=== PATIENT | male | born 1980 | race Caucasian/White ===

== ENCOUNTER 2017-11-06 19:04 | Emergency (ER) | payer BC ==
[2017-11-06] MEDS ORDERED: Sodium Chloride 0.9% 10 ML Syringe FLUSH PRN (19:20)
[2017-11-06] MEDS ORDERED: Sodium Chloride 0.9% 1,000 ML IV ONE (19:20)
[2017-11-06 20:14] LABS: CHLORIDE,CL 107 mmol/L (98-107); SODIUM,NA 142 mmol/L (136-145)
[2017-11-06 20:18] LABS: ANION GAP 11.5 mmol/L (10-20)
--- NOTE | 2017-11-06 21:25 | EDM.PDOC ---
ED HPI GENERAL MEDICAL PROBLEM - General Chief Complaint: Neuro Symptoms/Deficits Stated Complaint: possible stroke Time Seen by Provider: 11/06/17 19:16 Source of Information: Reports: Patient History Limitations: Reports: No Limitations - History of Present Illness INITIAL COMMENTS - FREE TEXT/NARRATIVE: Patient describes numbness and tingling that started this evening at around 1830. This started in his right hand and crept up the arm into the shoulder, neck, and right side of the face. He is also complaining of pain to the right side of his neck. He did not have any weakness on one side, no speech difficulty, no facial droop. He denies chest pain, pressure, headache, incontinence, falls, or decreased level of consciousness. History of aortic valve replacement and anticoagulation with warfarin. Symptoms did resolve within one hour of presentation to the emergency room. Onset: Today, Sudden Duration: Improving Location: Reports: Face, Upper Extremity, Right Quality: Reports: Other (numbness/tingling) Severity: Mild Associated Symptoms: Reports: No Other Symptoms - Related Data Allergies Allergy/AdvReac Type Severity Reaction Status Date / Time No Known Allergies Allergy Verified 01/17/16 11:56 Home Meds: Home Meds Ranitidine [Zantac] 150 mg PO DAILY 11/06/17 [History] Warfarin [Coumadin] 5 mg PO DAILY 11/06/17 [History] Past Medical History - Past Health History Medical/Surgical History: Denies Medical/Surgical History - Past Surgical History Cardiovascular Surgical History: Reports: Valve Replacement Social & Family History - Family History Family Medical History: Noncontributory ED ROS GENERAL - Review of Systems Review Of Systems: See Below Constitutional: Reports: No Symptoms HEENT: Reports: No Symptoms Respiratory: Reports: No Symptoms Cardiovascular: Reports: No Symptoms Endocrine: Reports: No Symptoms GI/Abdominal: Reports: No Symptoms : Reports: No Symptoms Musculoskeletal: Reports: Neck Pain Skin: Reports: No Symptoms Neurological: Reports: Numbness, Tingling (right side of upper body) Psychiatric: Reports: No Symptoms Hematologic/Lymphatic: Reports: No Symptoms Immunologic: Reports: No Symptoms ED EXAM, NEURO - Physical Exam Exam: See Below Exam Limited By: No Limitations General Appearance: Alert, WD/WN, No Apparent Distress Eye Exam: Bilateral Eye: EOMI, Normal Inspection, PERRL Ears: Normal TMs Nose: Normal Inspection, Normal Mucosa, No Blood Throat/Mouth: Normal Inspection, Normal Lips, Normal Teeth, Normal Gums, Normal Oropharynx, Normal Voice, No Airway Compromise Head Exam: Atraumatic, Normocephalic Neck: Normal Inspection, Supple, Non-Tender, Full Range of Motion Respiratory/Chest: No Respiratory Distress, Lungs Clear, Normal Breath Sounds, No Accessory Muscle Use, Chest Non-Tender Cardiovascular: Other (valve click) GI/Abdominal: Normal Bowel Sounds, Soft, Non-Tender, No Organomegaly, No Distention, No Abnormal Bruit, No Mass Neurological: Alert, Normal Mood/Affect, Normal Dorsiflexion, CN II-XII Intact, Normal Plantar Flexion, Normal Gait, Normal Reflexes, No Motor/Sensory Deficits , Oriented x 3 Back Exam: Normal Inspection, Full Range of Motion, NT Extremities: Normal Inspection, Normal Range of Motion, Non-Tender, No Pedal Edema, Normal Capillary Refill Psychiatric: Normal Affect, Normal Mood Skin Exam: Warm, Dry, Intact, Normal Color, No Rash Course - Orders/Labs/Meds Orders: Active Orders 24 hr Category Date Time Status EKG 12 Lead [EKG Documentation Completion] [RC] URGENT Care 11/06/17 19:17 Active Cervical Spine wo Cont [CT] Stat Exams 11/06/17 19:17 Taken Head wo Cont [CT] Stat Exams 11/06/17 19:17 Taken Saline Lock Insert [OM.PC] Routine Oth 11/06/17 19:20 Ordered Labs: Laboratory Tests 11/06/17 11/06/17 11/06/17 Range/Units 19:13 19:13 19:13 WBC 8.3 (4.0-10.0) x10^3/uL RBC 5.03 (4.5-6.0) x10^6/uL Hgb 15.2 (14.0-18.0) g/dL Hct 43.6 (40.0-52.0) % MCV 86.7 (78.0-93.0) fL MCH 30.2 (26.0-32.0) pg MCHC 34.9 (32.0-36.0) g/dL RDW Coeff of Adina 13.5 (10.0-15.0) % Plt Count 259 (130-400) x10^3/uL Neut % (Auto) 64.8 (50.0-80.0) % Lymph % (Auto) 24.5 L (25.0-50.0) % [place] % (Auto) 8.2 (2.0-11.0) % Eos % (Auto) 1.4 (0.0-4.0) % Baso % (Auto) 1.1 (0.2-1.2) % PT 11.1 (9.6-11.4) SEC INR 1.1 L (2.0-3.5) APTT 24.7 (21.3-33.5) SEC D-Dimer, Quantitative (<=0.58) mg/LFEU Sodium 142 (136-145) mmol/L Potassium 3.5 (3.5-5.1) mmol/L Chloride 107 (98-107) mmol/L Carbon Dioxide 27 (21-32) mmol/L Anion Gap 11.5 (10-20) mmol/L BUN 17 (7-18) mg/dL Creatinine 1.2 (0.70-1.30) mg/dL Est Cr Clr Drug Dosing TNP Estimated GFR (MDRD) > 60 Glucose 82 (74-106) mg/dL POC Glucose (74-106) mg/dL Calcium 9.0 (8.5-10.1) mg/dL Corrected Calcium 9.00 (8.5-10.1) mg/dL Total Bilirubin 0.6 (0.2-1.0) mg/dL AST 27 (15-37) U/L ALT 46 (16-63) U/L Alkaline Phosphatase 74 (46-116) U/L Creatine Kinase 176 (39-308) U/L POC Troponin I (0.00-0.08) ng/mL NT-Pro-B Natriuret Pep 50 (<=125) pg/mL Total Protein 8.0 (6.4-8.2) g/dL Albumin 4.0 (3.4-5.0) g/dL Globulin 4.0 Albumin/Globulin Ratio 1.00 TSH, Ultra Sensitive 1.838 (0.358-3.74) uIU/mL 11/06/17 11/06/17 11/06/17 Range/Units 19:13 19:14 19:18 WBC (4.0-10.0) x10^3/uL RBC (4.5-6.0) x10^6/uL Hgb (14.0-18.0) g/dL Hct (40.0-52.0) % MCV (78.0-93.0) fL MCH (26.0-32.0) pg MCHC (32.0-36.0) g/dL RDW Coeff of Adina (10.0-15.0) % Plt Count (130-400) x10^3/uL Neut % (Auto) (50.0-80.0) % Lymph % (Auto) (25.0-50.0) % [place] % (Auto) (2.0-11.0) % Eos % (Auto) (0.0-4.0) % Baso % (Auto) (0.2-1.2) % PT (9.6-11.4) SEC INR (2.0-3.5) APTT (21.3-33.5) SEC D-Dimer, Quantitative 0.72 H (<=0.58) mg/LFEU Sodium (136-145) mmol/L Potassium (3.5-5.1) mmol/L Chloride (98-107) mmol/L Carbon Dioxide (21-32) mmol/L Anion Gap (10-20) mmol/L BUN (7-18) mg/dL Creatinine (0.70-1.30) mg/dL Est Cr Clr Drug Dosing Estimated GFR (MDRD) Glucose (74-106) mg/dL POC Glucose 77 (74-106) mg/dL Calcium (8.5-10.1) mg/dL Corrected Calcium (8.5-10.1) mg/dL Total Bilirubin (0.2-1.0) mg/dL AST (15-37) U/L ALT (16-63) U/L Alkaline Phosphatase (46-116) U/L Creatine Kinase (39-308) U/L POC Troponin I 0.03 (0.00-0.08) ng/mL NT-Pro-B Natriuret Pep (<=125) pg/mL Total Protein (6.4-8.2) g/dL Albumin (3.4-5.0) g/dL Globulin Albumin/Globulin Ratio TSH, Ultra Sensitive (0.358-3.74) uIU/mL Meds: Medications Discontinued Medications Generic Name Dose Route Start Last Admin Trade Name Mahnaz PRN Reason Stop Dose Admin Sodium Chloride 10 ml 11/06/17 19:20 Saline Flush FLUSH ASDIRECTED PRN Keep Vein Open Departure - Departure Time of Disposition: 21:35 Disposition: DC/Tfer to Acute Hospital 02 Condition: Fair Clinical Impression: TIA (transient ischemic attack), Hypertension, Anxiety - Discharge Information *PRESCRIPTION DRUG MONITORING PROGRAM REVIEWED*: Not Applicable *COPY OF PRESCRIPTION DRUG MONITORING REPORT IN PATIENT SHAHEEN: Not Applicable Referrals: Roselia Coley, [Primary Care Provider] - Forms: ED Department Discharge, Interfacility Transfer [facility] ED Communication - ED Communication Date/Time Date: 11/06/17 Time Called: 20:45 - Discussed Case With (1) Discussed Case With (1): Other (Dr. Dykes called to consult. He did not feel the patient necessarily needed to be transferred to [facility]. Suggested a lovenox bridge until therapeutic with coumadin/warfarin. Dr. Martinez, hospitalist also contacted. Accepted patient for further testing. Patient was found to be out of the [facility] due to not following up.) Person/s Notified (1): ruben - My Orders Last 24 Hours: My Active Orders 11/06/17 19:17 EKG 12 Lead [EKG Documentation Completion] [RC] URGENT Cervical Spine wo Cont [CT] Stat Head wo Cont [CT] Stat 11/06/17 19:20 Saline Lock Insert [OM.PC] Routine - Assessment/Plan Last 24 Hours: My Active Orders 11/06/17 19:17 EKG 12 Lead [EKG Documentation Completion] [RC] URGENT Cervical Spine wo Cont [CT] Stat Head wo Cont [CT] Stat 11/06/17 19:20 Saline Lock Insert [OM.PC] Routine
== END 2017-11-06 21:35 | disposition short-term general hospital (02) ==
LOC: VM.ED 19:04
DX: G45.9 Transient cerebral ischemic attack, unspecified (principal); F41.9 Anxiety disorder, unspecified; I10 Essential (primary) hypertension
CPT/HCPCS: 36415; 70450; 72125; 80053; 82550; 82962; 83880; 84443; 84484; 85025; 85379; 85610; 85730; 99285

== ENCOUNTER 2018-11-30 02:52 | Emergency (ER) | payer BC, OTHER ==
[2018-11-30] MEDS ORDERED: HYDROmorphone 1 MG/ML Syringe IVPUSH ONE ×2 (03:12→03:54)
[2018-11-30] MEDS ORDERED: Ondansetron 4 MG/2 ML SDV IVPUSH ONE (03:13)
[2018-11-30] MEDS ORDERED: Sodium Chloride 0.9% 10 ML Syringe FLUSH PRN (03:14)
[2018-11-30] MEDS ORDERED: Sodium Chloride 0.9% 1,000 ML IV ONE (03:14)
--- NOTE | 2018-11-30 03:38 | EDM.PDOC ---
ED HPI GENERAL MEDICAL PROBLEM - General Chief Complaint: Abdominal Pain Stated Complaint: Upper abdominal pain Time Seen by Provider: 11/30/18 03:00 Source of Information: Reports: Patient, RN Notes Reviewed History Limitations: Reports: No Limitations - History of Present Illness INITIAL COMMENTS - FREE TEXT/NARRATIVE: Pt. presents to ER with complaints up R upper abdominal/epigastric pain. Pt. states that the discomfort started at approx. midnight tonight. Pt. states that the discomfort was very acute in nature. He has had similar pain in the past several weeks but states that it resolved on its own. Denies any known history of gallbladder disease or epigatric pain in the past, except for the past week. He states that the discomfort radiates into his mid back region. Denies any fever or chills. He complains of nausea. He states that he last ate chili at about 6:30 this evening. Denies any discoloration to the urine or stool. No melena, hematochezia, or hematemesis. Denies any substernal chest pain. No shortness of breath. Pt. had a history of aortic stenosis and has a mechanical heart valve. He is on coumadin. He states that he has not had his INR checked "for a long time". Appears that patient last INR was in 2017. He has orders of labs since then but has not had any INR since 2017. According to his chart, he had a TIA with no lasting deficits and has had issues with uncontrolled hypertension due to non-compliance with his coumadin and Coreg in the past. Onset: Today Onset Date: 11/30/18 Onset Time: 00:00 Location: Reports: Abdomen Quality: Reports: Ache, Sharp, Stabbing Severity: Severe Upper abdomen, worse to RUQ Pain Score (Numeric/FACES): 3 - Related Data Allergies Allergy/AdvReac Type Severity Reaction Status Date / Time No Known Allergies Allergy Verified 01/17/16 11:56 Home Meds: Home Meds Ranitidine [Zantac] 150 mg PO DAILY 11/06/17 [History] Warfarin [Coumadin] 7.5 mg PO DAILY 11/06/17 [History] Carvedilol [Coreg] 12.5 mg PO BID 11/30/18 [History] Past Medical History - Past Health History Medical/Surgical History: Denies Medical/Surgical History - Past Surgical History Cardiovascular Surgical History: Reports: Valve Replacement Social & Family History - Family History Family Medical History: Noncontributory ED ROS GENERAL - Review of Systems Review Of Systems: See Below Constitutional: Reports: No Symptoms. Denies: Fever, Chills HEENT: Reports: No Symptoms Respiratory: Reports: No Symptoms Cardiovascular: Reports: No Symptoms Endocrine: Reports: No Symptoms GI/Abdominal: Reports: Abdominal Pain, Nausea, Vomiting : Reports: No Symptoms Musculoskeletal: Reports: No Symptoms Skin: Reports: No Symptoms Neurological: Reports: No Symptoms Psychiatric: Reports: No Symptoms Hematologic/Lymphatic: Reports: No Symptoms Immunologic: Reports: No Symptoms ED EXAM, GENERAL - Physical Exam Exam: See Below Exam Limited By: No Limitations General Appearance: Alert, WD/WN, No Apparent Distress Respiratory/Chest: No Respiratory Distress, Lungs Clear, Normal Breath Sounds, No Accessory Muscle Use, Chest Non-Tender Cardiovascular: Normal Peripheral Pulses, Regular Rate, Rhythm, No Edema, No Gallop, No JVD, No Murmur, No Rub Peripheral Pulses: 4+: Radial (R) GI/Abdominal: Normal Bowel Sounds, Soft, No Organomegaly, No Mass, Tender ( Exquisitely tender over epigastrium/RUQ) (Male) Exam: Deferred Rectal (Males) Exam: Deferred Back Exam: Normal Inspection, Full Range of Motion Extremities: Normal Inspection, Normal Range of Motion, Non-Tender, No Pedal Edema, Normal Capillary Refill Neurological: Alert, Oriented, CN II-XII Intact, Normal Cognition, Normal Gait, Normal Reflexes, No Motor/Sensory Deficits Psychiatric: Normal Affect, Normal Mood Skin Exam: Warm, Dry, Intact, Normal Color, No Rash Course - Vital Signs Last Recorded V/S: Last Vital Signs Temp 35.5 C 11/30/18 02:52 Pulse 84 11/30/18 05:08 Resp 16 11/30/18 05:08 BP 187/111 H 11/30/18 05:08 Pulse Ox 100 11/30/18 02:52 - Orders/Labs/Meds Orders: Active Orders 24 hr Category Date Time Status EKG Documentation Completion [RC] STAT Care 11/30/18 03:15 Active Abdomen Pelvis w Cont [CT] Stat Exams 11/30/18 04:39 Ordered Ang Chest [CT] Stat Exams 11/30/18 04:38 Ordered Sodium Chloride 0.9% [Saline Flush] Med 11/30/18 03:14 Active 10 ml FLUSH ASDIRECTED PRN Peripheral IV Insertion Adult [OM.PC] Routine Oth 11/30/18 03:15 Ordered Medication Orders Sodium Chloride (Saline Flush) 10 ml FLUSH ASDIRECTED PRN PRN Reason: Keep Vein Open Labs: Laboratory Tests 11/30/18 11/30/18 11/30/18 Range/Units 03:15 03:15 03:15 WBC 6.4 (4.0-10.0) x10^3/uL RBC 5.33 (4.5-6.0) x10^6/uL Hgb 15.7 (14.0-18.0) g/dL Hct 45.9 (40.0-52.0) % MCV 86.1 (78.0-93.0) fL MCH 29.5 (26.0-32.0) pg MCHC 34.2 (32.0-36.0) g/dL RDW Coeff of Adina 12.9 (10.0-15.0) % Plt Count 240 (130-400) x10^3/uL Neut % (Auto) 54.3 (50.0-80.0) % Lymph % (Auto) 26.6 (25.0-50.0) % [place] % (Auto) 15.6 H (2.0-11.0) % Eos % (Auto) 1.9 (0.0-4.0) % Baso % (Auto) 1.6 H (0.2-1.2) % PT 10.4 (10.0-12.8) SEC INR 0.9 L (2.0-3.5) D-Dimer, Quantitative (<=0.58) mg/LFEU Sodium 140 (136-145) mmol/L Potassium 3.8 (3.5-5.1) mmol/L Chloride 103 (98-107) mmol/L Carbon Dioxide 26 (21-32) mmol/L Anion Gap 14.8 (10-20) mmol/L BUN 17 (7-18) mg/dL Creatinine 1.0 (0.70-1.30) mg/dL Est Cr Clr Drug Dosing 118.53 mL/min Estimated GFR (MDRD) > 60 Glucose 111 H (74-106) mg/dL Calcium 8.9 (8.5-10.1) mg/dL Corrected Calcium 9.14 (8.5-10.1) mg/dL Phosphorus 2.7 (2.6-4.7) mg/dL Magnesium 1.9 (1.8-2.4) mg/dL Total Bilirubin 0.4 (0.2-1.0) mg/dL AST 43 H (15-37) U/L ALT 55 (16-63) U/L Alkaline Phosphatase 92 (46-116) U/L Troponin I 3.043 H* (<=0.056) ng/mL C-Reactive Protein < 0.2 (<=0.9) mg/dL Total Protein 7.9 (6.4-8.2) g/dL Albumin 3.7 (3.4-5.0) g/dL Globulin 4.2 Albumin/Globulin Ratio 0.88 Amylase 28 (25-115) U/L Lipase 133 (73-393) U/L TSH, Ultra Sensitive 1.420 (0.358-3.74) uIU/mL 11/30/18 Range/Units 03:15 WBC (4.0-10.0) x10^3/uL RBC (4.5-6.0) x10^6/uL Hgb (14.0-18.0) g/dL Hct (40.0-52.0) % MCV (78.0-93.0) fL MCH (26.0-32.0) pg MCHC (32.0-36.0) g/dL RDW Coeff of Adina (10.0-15.0) % Plt Count (130-400) x10^3/uL Neut % (Auto) (50.0-80.0) % Lymph % (Auto) (25.0-50.0) % [place] % (Auto) (2.0-11.0) % Eos % (Auto) (0.0-4.0) % Baso % (Auto) (0.2-1.2) % PT (10.0-12.8) SEC INR (2.0-3.5) D-Dimer, Quantitative 0.50 (<=0.58) mg/LFEU Sodium (136-145) mmol/L Potassium (3.5-5.1) mmol/L Chloride (98-107) mmol/L Carbon Dioxide (21-32) mmol/L Anion Gap (10-20) mmol/L BUN (7-18) mg/dL Creatinine (0.70-1.30) mg/dL Est Cr Clr Drug Dosing mL/min Estimated GFR (MDRD) Glucose (74-106) mg/dL Calcium (8.5-10.1) mg/dL Corrected Calcium (8.5-10.1) mg/dL Phosphorus (2.6-4.7) mg/dL Magnesium (1.8-2.4) mg/dL Total Bilirubin (0.2-1.0) mg/dL AST (15-37) U/L ALT (16-63) U/L Alkaline Phosphatase (46-116) U/L Troponin I (<=0.056) ng/mL C-Reactive Protein (<=0.9) mg/dL Total Protein (6.4-8.2) g/dL Albumin (3.4-5.0) g/dL Globulin Albumin/Globulin Ratio Amylase (25-115) U/L Lipase (73-393) U/L TSH, Ultra Sensitive (0.358-3.74) uIU/mL Meds: Medications Generic Name Dose Route Start Last Admin Trade Name Freq PRN Reason Stop Dose Admin Sodium Chloride 10 ml 11/30/18 03:14 Saline Flush FLUSH ASDIRECTED PRN Keep Vein Open Discontinued Medications Generic Name Dose Route Start Last Admin Trade Name Freq PRN Reason Stop Dose Admin Hydromorphone HCl 1 mg 11/30/18 03:12 11/30/18 03:22 Dilaudid IVPUSH 11/30/18 03:13 1 mg ONETIME ONE Administration Hydromorphone HCl 1 mg 11/30/18 03:54 11/30/18 03:58 Dilaudid IVPUSH 11/30/18 03:55 1 mg ONETIME ONE Administration Sodium Chloride 1,000 mls @ 1,000 mls/hr 11/30/18 03:14 11/30/18 03:20 Normal Saline IV 11/30/18 04:13 1,000 mls/hr .BOLUS ONE Administration Iopamidol 100 ml 11/30/18 04:15 11/30/18 05:12 Isovue-300 (61%) IVPUSH 11/30/18 04:16 100 ml ONETIME ONE Administration Labetalol HCl 20 mg 11/30/18 05:12 11/30/18 05:18 Normodyne IVPUSH 11/30/18 05:13 20 mg NOW ONE Administration Protocol Ondansetron HCl 4 mg 11/30/18 03:13 11/30/18 03:25 Zofran IVPUSH 11/30/18 03:14 4 mg ONETIME ONE Administration - Radiology Interpretation Free Text/Narrative:: CTA chest obtained. No PE noted. + cardiomegaly. CT abdomen and pelvis obtained. + cholelithiasis. Thickening of gallbladder wall. No obvious signs of cholangitis. Departure - Departure Time of Disposition: 06:14 Disposition: DC/Tfer to Acute Hospital 02 Clinical Impression: NSTEMI (non-ST elevated myocardial infarction), Cholecystitis - Discharge Information Forms: ED Department Discharge - Problem List Review Problem List Initiated/Reviewed/Updated: Yes - My Orders Last 24 Hours: My Active Orders 11/30/18 03:14 Sodium Chloride 0.9% [Saline Flush] 10 ml FLUSH ASDIRECTED PRN 11/30/18 03:15 EKG Documentation Completion [RC] STAT Peripheral IV Insertion Adult [OM.PC] Routine 11/30/18 04:38 Ang Chest [CT] Stat 11/30/18 04:39 Abdomen Pelvis w Cont [CT] Stat - Assessment/Plan Last 24 Hours: My Active Orders 11/30/18 03:14 Sodium Chloride 0.9% [Saline Flush] 10 ml FLUSH ASDIRECTED PRN 11/30/18 03:15 EKG Documentation Completion [RC] STAT Peripheral IV Insertion Adult [OM.PC] Routine 11/30/18 04:38 Ang Chest [CT] Stat 11/30/18 04:39 Abdomen Pelvis w Cont [CT] Stat Plan: Pt. will be transferred to [facility] in [place]. Pt. will be transported via [facility] ground ambulance. He will be heparinized. Pain is well controlled with IV dilaudid. Pt. was given labetolol 20mg IV for hypertension. BP at time of transfer was 154/91. He will be transported via [facility] ground ambulance.
[2018-11-30] MEDS ORDERED: Iopamidol 612 MG/ML 100 ML Bottle IVPUSH ONE (04:15)
[2018-11-30 04:20] LABS: ANION GAP 14.8 mmol/L (10-20); CHLORIDE,CL 103 mmol/L (98-107); SODIUM,NA 140 mmol/L (136-145)
[2018-11-30] MEDS ORDERED: Labetalol 20 MG/4 ML Syringe IVPUSH ONE (05:12)
[2018-11-30 05:29] VITALS: PULSE 84
[2018-11-30] MEDS ORDERED: Heparin Sodium 5,000 Units/ML Vial IVPUSH ONE (06:12)
[2018-11-30] MEDS ORDERED: Heparin Sodium/0.45% NaCl 25,000 UNITS/500 ML BAG IV SCH (06:15)
[2018-11-30 07:28] VITALS: BP 158/100
--- NOTE | 2018-11-30 09:40 | CT ---
[id number] CT/CT Abdomen Pelvis W IV EXAM: ABDOMEN AND PELVIS CT WITH CONTRAST INDICATION: Epigastric pain and elevated d-dimer. COMPARISON: None. DISCUSSION: Cholelithiasis without evidence of acute cholecystitis. A thick-walled appearance of the distal esophagus could relate to underlying esophagitis or neoplasm and correlation with endoscopy is suggested. Scattered colonic diverticula without CT evidence of acute diverticulitis. Granulomata left lung base. Possible mild fatty infiltration of the liver. The pancreas, spleen, adrenal glands, kidneys, small bowel and the appendix are normal in appearance. No adenopathy, free air free fluid. Degenerative changes are noted in the spine. IMPRESSION: Cholelithiasis. Ultrasound may be useful to further evaluate for cholecystitis if clinical signs and symptoms are equivocal. A thick-walled appearance of the distal esophagus suspicious for underlying esophagitis or neoplasm. Consider correlation with EGD. Henri Solano MD 11/30/18 [id number] Thank you for allowing us to participate in the care of your patient.
--- NOTE | 2018-11-30 11:51 | CT ---
[id number] CT/CTA Chest CT Abd Pelvis W IV EXAM: CT ANGIOGRAM CHEST INDICATION: EPIGASTRIC PAIN, HIGH TROPONIN COMPARISON: None. DISCUSSION: The pulmonary arteries enhance normally without evidence of congestive heart failure. There is a small sliding type hiatus hernia in the mid to distal esophagus demonstrates apparent circumferential wall thickening which could relate to esophagitis or neoplasm, consider correlation with endoscopy. There are couple of calcified granulomas in the left lower lobe. No infiltrates. No pleural or pericardial effusion. No adenopathy. Prior sternotomy with coronary artery bypass graft and aortic valve replacement. Degenerative changes are noted in the spine. Mild wedging of the T11 vertebral body with associated kyphosis and scattered endplate Schmorl's nodes could be seen with Scheuermann's disease. IMPRESSION: 1. Negative for pulmonary embolism. 2. A thick-walled appearance of the mid to distal esophagus could relate to an underlying neoplasm or esophagitis. Endoscopy may be useful for further evaluation. Henri Solano MD 11/30/18 [id number] Thank you for allowing us to participate in the care of your patient.
== END 2018-11-30 07:00 | disposition short-term general hospital (02) ==
LOC: VM.ED 02:52
DX: K81.9 Cholecystitis, unspecified (principal); I21.4 Non-ST elevation (NSTEMI) myocardial infarction; Z95.4 Presence of other heart-valve replacement; Z79.01 Long term (current) use of anticoagulants; Z79.899 Other long term (current) drug therapy
CPT/HCPCS: 71275; 74177; 80053; 82150; 83690; 83735; 84100; 84443; 84484; 85025; 85379; 85610; 86140; 93005; 96361; 96365; 96375; 96376; 99285; J1170; J1644; J2405; J3490; J7030; Q9967; 36415

== ENCOUNTER 2018-12-02 18:18 | Emergency (ER) | payer OTHER ==
[2018-12-02] MEDS ORDERED: Meperidine PF 25 MG/ML Syringe IV ONE ×2 (18:41→19:39)
[2018-12-02] MEDS ORDERED: Ondansetron 4 MG/2 ML SDV IVPUSH ONE (18:41)
--- NOTE | 2018-12-02 18:51 | EDM.PDOC ---
ED HPI GENERAL MEDICAL PROBLEM - General Chief Complaint: Abdominal Pain Stated Complaint: PAIN IN SIDE Time Seen by Provider: 12/02/18 18:30 Source of Information: Reports: Patient History Limitations: Reports: No Limitations - History of Present Illness INITIAL COMMENTS - FREE TEXT/NARRATIVE: Patient presents ER today with ongoing right-sided upper quadrant pain since this morning that has gotten worse over the last 6-7 hours rates his pain as a 7 or 8 out of 10 sharp stabbing intermittently. Patient was seen here in the emergency room Saturday and transfer to [facility] with diagnosis of choledocholithiasis and was told he had an outpatient appointment for cholecystectomy on 19 December secondary to multiple stones. Patient states that with this type of pain he don't think he can wait. He states for lunch today he had 2 sandwiches and small bag of chips and a Mountain Dew he has no nausea or vomiting no fever no chills no backache no other complaints Location: Reports: Abdomen Quality: Reports: Stabbing Severity: Moderate Improves with: Reports: None Worsens with: Reports: None - Related Data Allergies Allergy/AdvReac Type Severity Reaction Status Date / Time No Known Allergies Allergy Verified 01/17/16 11:56 Home Meds: Home Meds Warfarin [Coumadin] 10 mg PO DAILY 11/06/17 [History] Carvedilol [Coreg] 12.5 mg PO BID 11/30/18 [History] Past Medical History - Past Health History Medical/Surgical History: Denies Medical/Surgical History Neurological History: Reports: TIA - Past Surgical History Cardiovascular Surgical History: Reports: Valve Replacement Social & Family History - Family History Family Medical History: Noncontributory ED ROS GENERAL - Review of Systems Review Of Systems: See Below Constitutional: Reports: No Symptoms. Denies: Fever, Chills, Malaise, Weakness HEENT: Reports: No Symptoms Respiratory: Reports: No Symptoms Cardiovascular: Reports: No Symptoms Endocrine: Reports: No Symptoms GI/Abdominal: Reports: Abdominal Pain, Nausea. Denies: Anorexia, Black Stool, Bloody Stool, Constipation, Diarrhea, Decreased Appetite, Difficulty Swallowing , Distension, Flatus, Melena : Reports: No Symptoms Musculoskeletal: Reports: No Symptoms Skin: Reports: No Symptoms Neurological: Reports: No Symptoms Psychiatric: Reports: No Symptoms Hematologic/Lymphatic: Reports: No Symptoms Immunologic: Reports: No Symptoms ED EXAM, GI/ABD - Physical Exam Exam: See Below Exam Limited By: No Limitations General Appearance: Alert, WD/WN, No Apparent Distress Eyes: Bilateral: Normal Appearance, EOMI Nose: Normal Inspection, Normal Mucosa, No Blood Throat/Mouth: Normal Inspection, Normal Lips, Normal Teeth, Normal Gums, Normal Oropharynx, Normal Voice, No Airway Compromise Head: Atraumatic, Normocephalic Neck: Normal Inspection, Supple, Non-Tender, Full Range of Motion Respiratory/Chest: No Respiratory Distress, Lungs Clear, Normal Breath Sounds, No Accessory Muscle Use, Chest Non-Tender Cardiovascular: Normal Peripheral Pulses, Regular Rate, Rhythm, No Edema, No JVD GI/Abdominal Exam: Normal Bowel Sounds, Soft, No Organomegaly, Tender, Other ( Positive Garcia sign no signs of any peritoneal issues). No: Non-Tender, No Distention, Guarding, Rigid, Rebound Back Exam: Normal Inspection, Full Range of Motion Extremities: Normal Inspection, Normal Range of Motion, Non-Tender Neurological: Alert, Oriented, CN II-XII Intact, Normal Cognition, Normal Gait, No Motor/Sensory Deficits Psychiatric: Normal Affect, Normal Mood Skin Exam: Warm, Dry, Intact, Normal Color, No Rash Course - Vital Signs Text/Narrative:: We'll check CBC CMP amylase lipase Demerol Zofran IV Labs all within normal limits recheck patient states feels much better as well and follow up outpatient with primary care provider next 24 hours he is going to try to get him with the surgeon sooner if possible I will discharge patient home with a to go pack of Lortab and Phenergan - Orders/Labs/Meds Labs: Laboratory Tests 12/02/18 12/02/18 Range/Units 18:52 18:52 WBC 10.4 H (4.0-10.0) x10^3/uL RBC 5.37 (4.5-6.0) x10^6/uL Hgb 15.7 (14.0-18.0) g/dL Hct 45.5 (40.0-52.0) % MCV 84.7 (78.0-93.0) fL MCH 29.2 (26.0-32.0) pg MCHC 34.5 (32.0-36.0) g/dL RDW Coeff of Adina 13.0 (10.0-15.0) % Plt Count 266 (130-400) x10^3/uL Neut % (Auto) 74.1 (50.0-80.0) % Lymph % (Auto) 16.5 L (25.0-50.0) % [place] % (Auto) 7.6 (2.0-11.0) % Eos % (Auto) 1.1 (0.0-4.0) % Baso % (Auto) 0.7 (0.2-1.2) % Sodium 137 (136-145) mmol/L Potassium 3.7 (3.5-5.1) mmol/L Chloride 100 (98-107) mmol/L Carbon Dioxide 27 (21-32) mmol/L Anion Gap 13.7 (10-20) mmol/L BUN 15 (7-18) mg/dL Creatinine 0.9 (0.70-1.30) mg/dL Est Cr Clr Drug Dosing TNP Estimated GFR (MDRD) > 60 Glucose 112 H (74-106) mg/dL Calcium 9.3 (8.5-10.1) mg/dL Corrected Calcium 9.30 (8.5-10.1) mg/dL Total Bilirubin 0.7 (0.2-1.0) mg/dL AST 34 (15-37) U/L ALT 59 (16-63) U/L Alkaline Phosphatase 100 (46-116) U/L Total Protein 8.7 H (6.4-8.2) g/dL Albumin 4.0 (3.4-5.0) g/dL Globulin 4.7 Albumin/Globulin Ratio 0.85 Amylase 23 L (25-115) U/L Lipase 84 (73-393) U/L Meds: Medications Discontinued Medications Generic Name Dose Route Start Last Admin Trade Name Freq PRN Reason Stop Dose Admin Meperidine HCl 25 mg 12/02/18 18:41 12/02/18 18:52 Demerol IV 12/02/18 18:42 25 mg ONETIME ONE Administration Meperidine HCl 25 mg 12/02/18 19:39 12/02/18 19:44 Demerol IV 12/02/18 19:40 25 mg ONETIME ONE Administration Ondansetron HCl 4 mg 12/02/18 18:41 12/02/18 18:54 Zofran IVPUSH 12/02/18 18:42 4 mg ONETIME ONE Administration Departure - Departure Time of Disposition: 19:50 Disposition: Home, Self-Care 01 Condition: Good Clinical Impression: Abdominal pain, Choledocholithiasis - Discharge Information *PRESCRIPTION DRUG MONITORING PROGRAM REVIEWED*: No *COPY OF PRESCRIPTION DRUG MONITORING REPORT IN PATIENT SHAHEEN: No Referrals: PCP,None [Primary Care Provider] - Forms: ED Department Discharge - Problem List & Annotations (1) Abdominal pain SNOMED Code(s): 14201787 Code(s): R10.9 - UNSPECIFIED ABDOMINAL PAIN Status: Acute Current Visit: Yes (2) Choledocholithiasis SNOMED Code(s): 926204463 Code(s): K80.50 - CALCULUS OF BILE DUCT W/O CHOLANGITIS OR CHOLECYST W/O OBST Status: Acute Current Visit: Yes
[2018-12-02 19:23] LABS: ANION GAP 13.7 mmol/L (10-20); CHLORIDE,CL 100 mmol/L (98-107); SODIUM,NA 137 mmol/L (136-145)
[2018-12-02] MEDS ORDERED: Take Home: Acetaminophen/HYDROcodone 325-5 MG, 5 Tab Pack PO ONE (19:52)
[2018-12-02] MEDS ORDERED: Promethazine 25 MG Tab PO PRN (19:53)
[2018-12-02 20:17] VITALS: BP 146/106; PULSE 98
== END 2018-12-02 20:03 | disposition home or self-care (01) ==
LOC: VM.ED 18:18
DX: K80.50 Calculus of bile duct without cholangitis or cholecystitis without obstruction (principal); Z79.01 Long term (current) use of anticoagulants; Z79.899 Other long term (current) drug therapy
CPT/HCPCS: 80053; 82150; 83690; 85025; 96374; 96375; 96376; 99284; A9270; J2175; J2405

== ENCOUNTER 2018-12-30 14:28 | Emergency (ER) | payer OTHER ==
--- NOTE | 2018-12-30 14:42 | EDM.PDOC ---
ED HPI GENERAL MEDICAL PROBLEM - General Chief Complaint: Wound Recheck Stated Complaint: NEED SUTURES TO OPEN WOUND Time Seen by Provider: 12/30/18 14:35 Source of Information: Reports: Patient History Limitations: Reports: No Limitations - History of Present Illness INITIAL COMMENTS - FREE TEXT/NARRATIVE: Patient states he had the sutures removed last Saturday and states that he was not able to see the wound due to not able to bend over so he does not know when the wound came back "but noticed it last night when he went to change his dressing He denies any pain or any trouble with bowel movements has been eating and drinking fine has no fever or chills Duration: Day(s): Location: Reports: Abdomen Improves with: Reports: None Worsens with: Reports: None Associated Symptoms: Reports: No Other Symptoms - Related Data Allergies Allergy/AdvReac Type Severity Reaction Status Date / Time No Known Allergies Allergy Verified 12/30/18 14:53 Home Meds: Home Meds Warfarin [Coumadin] 10 mg PO DAILY 11/06/17 [History] Carvedilol [Coreg] 25 mg PO BID 11/30/18 [History] Acetaminophen [Tylenol] 650 mg PO Q4H PRN 12/02/18 [History] Aspirin [Halfprin] 81 mg PO DAILY 12/02/18 [History] Enoxaparin [Lovenox] 120 mg SQ BID 12/02/18 [History] Lisinopril 5 mg PO DAILY 12/02/18 [History] hydroCHLOROthiazide [Hydrochlorothiazide] 25 mg PO DAILY 12/02/18 [History] Past Medical History - Past Health History Medical/Surgical History: Denies Medical/Surgical History Gastrointestinal History: Reports: Cholelithiasis Neurological History: Reports: TIA - Past Surgical History Cardiovascular Surgical History: Reports: Valve Replacement Social & Family History - Family History Family Medical History: Noncontributory ED ROS GENERAL - Review of Systems Review Of Systems: See Below Constitutional: Reports: No Symptoms. Denies: Fever, Chills, Malaise, Weakness HEENT: Reports: No Symptoms Cardiovascular: Reports: No Symptoms Endocrine: Reports: No Symptoms GI/Abdominal: Reports: No Symptoms. Denies: Abdominal Pain : Reports: No Symptoms (PT here for open wound status post cholecystectomy that was performed open on the 2) Musculoskeletal: Reports: No Symptoms Skin: Reports: Other (Concerns about the open wound) Neurological: Reports: No Symptoms Hematologic/Lymphatic: Reports: No Symptoms Immunologic: Reports: No Symptoms ED EXAM, GENERAL - Physical Exam Exam: See Below Exam Limited By: No Limitations General Appearance: Alert, WD/WN, No Apparent Distress Eye Exam: Bilateral Eye: PERRL Throat/Mouth: Normal Inspection, Normal Lips, Normal Teeth, Normal Gums, No Airway Compromise Neck: Full Range of Motion Respiratory/Chest: No Respiratory Distress, No Accessory Muscle Use GI/Abdominal: Normal Bowel Sounds, Soft, No Organomegaly, No Distention, Other ( mild ttp around the open wound ). No: Guarding, Rigid Back Exam: Full Range of Motion Extremities: Normal Inspection, Normal Range of Motion Neurological: Alert, Oriented, CN II-XII Intact, Normal Cognition, Normal Gait, No Motor/Sensory Deficits Psychiatric: Normal Affect, Normal Mood Skin Exam: Warm, Dry, Normal Color, No Rash, Wound/Incision (Linear incision status post open cholecystectomy with approximately 4 cm x 1 cm dehisced area at the midline of the incision with blackish discoloration inside the incision with poor granulation around it the patient has healing ecchymosis than the incision he has mild sanguinous drainage no signs or symptoms of secondary infection/cellulitis) Course - Vital Signs Text/Narrative:: Spoke with Dr. Love in all surgeon at [place] asked me to probe the wound with a Q-tip to see if it easily passed through the wound or had resistance. With light pressure I was able to pass the cotton aspects of the Q-tip into the wound and quit patient denies any pain no bleeding was noted. Per Dr. Love and have the patient transferred to [facility] via EMS cover the area with wet gauze and sterile dressing. Patient refuses to go via EMS states he'll go POV explain risks versus benefits patient still via POV Dr. Hughes was informed by a call center Last Recorded V/S: Last Vital Signs Temp 36.5 C 12/30/18 14:30 Pulse 117 H 12/30/18 14:30 Resp 20 12/30/18 14:30 BP 137/86 12/30/18 14:30 Pulse Ox 99 12/30/18 14:30 Departure - Departure Time of Disposition: 14:55 Disposition: DC/Tfer to Acute Hospital 02 Condition: Good Clinical Impression: Wound dehiscence, surgical - Discharge Information *PRESCRIPTION DRUG MONITORING PROGRAM REVIEWED*: No *COPY OF PRESCRIPTION DRUG MONITORING REPORT IN PATIENT SHAHEEN: No Instructions: Wound Dehiscence, [id number], Wound Infection, [id number] Referrals: Roselia Coley, [Primary Care Provider] - Forms: ED Department Discharge, Interfacility Transfer [facility] Additional Instructions: Go directly to [facility] to see Dr. Hughes Return to the emergency room if you not able to or if anything changes - Problem List & Annotations (1) Wound dehiscence, surgical SNOMED Code(s): 828460758 Code(s): T81.31XA - DISRUPTION OF EXTERNAL OPERATION (SURGICAL) WOUND, NEC, INIT Status: Acute
[2018-12-30 14:59] VITALS: BP 137/86; PULSE 117
== END 2018-12-30 15:40 | disposition short-term general hospital (02) ==
LOC: VM.ED 14:28
DX: T81.30XA Disruption of wound, unspecified, initial encounter (principal); Z86.73 Personal history of transient ischemic attack (TIA), and cerebral infarction without residual deficits; Z79.82 Long term (current) use of aspirin; Y83.9 Surgical procedure, unspecified as the cause of abnormal reaction of the patient, or of later complication, without mention of misadventure at the time of the procedure
CPT/HCPCS: 99284

== ENCOUNTER 2019-09-10 14:38 | Emergency (ER) | payer OTHER ==
--- NOTE | 2019-09-10 15:46 | EDM.PDOC ---
ED HPI GENERAL MEDICAL PROBLEM - General Chief Complaint: Laceration Stated Complaint: CUT FINGER Time Seen by Provider: 09/10/19 15:20 Source of Information: Reports: Patient History Limitations: Reports: No Limitations - History of Present Illness INITIAL COMMENTS - FREE TEXT/NARRATIVE: Patient comes into the emergency department with complaint of a laceration to his right Pinky finger. Patient states he was at work and his wrench slipped causing his finger to hit aBoth causing a laceration to his pinky. Patient is on Coumadin for previous Open heart surgery. Patient states that he was concerned regarding amount of bleeding that had initially started. Upon arrival to the emergency department he was able to have the bleeding controlled with manual pressure. Patient denies any CMS or range of motion concerns. Patient denies any numbness or tingling of the pinky, hand or arm. Patient states he is been relatively healthy this past winter and has no COVID-19 symptoms Onset: Sudden Quality: Reports: Other Severity: Mild Improves with: Reports: None Worsens with: Reports: None Associated Symptoms: Reports: No Other Symptoms - Related Data Allergies Allergy/AdvReac Type Severity Reaction Status Date / Time No Known Allergies Allergy Verified 12/30/18 14:53 Home Meds: Home Meds Warfarin [Coumadin] 10 mg PO DAILY 11/06/17 [History] carvediloL [Coreg] 25 mg PO BID 11/30/18 [History] Acetaminophen [Tylenol] 650 mg PO Q4H PRN 12/02/18 [History] Aspirin [Halfprin] 81 mg PO DAILY 12/02/18 [History] Enoxaparin [Lovenox] 120 mg SQ BID 12/02/18 [History] hydroCHLOROthiazide [Hydrochlorothiazide] 25 mg PO DAILY 12/02/18 [History] lisinopriL [Lisinopril] 5 mg PO DAILY 12/02/18 [History] Past Medical History - Past Health History Medical/Surgical History: Denies Medical/Surgical History Cardiovascular History: Reports: Hypertension Gastrointestinal History: Reports: Cholelithiasis Neurological History: Reports: TIA - Past Surgical History Cardiovascular Surgical History: Reports: Valve Replacement Social & Family History - Family History Family Medical History: Noncontributory Review of Systems - Review of Systems Review Of Systems: Comprehensive ROS is negative, except as noted in HPI. Constitutional: Reports: No Symptoms Eyes: Reports: No Symptoms Ears: Reports: No Symptoms Nose: Reports: No Symptoms Respiratory: Reports: No Symptoms Cardiovascular: Reports: No Symptoms GI/Abdominal: Reports: No Symptoms Musculoskeletal: Reports: No Symptoms Neurological: Reports: No Symptoms Psychiatric: Reports: No Symptoms ED EXAM, GENERAL - Physical Exam Exam: See Below Exam Limited By: No Limitations General Appearance: Alert, WD/WN, No Apparent Distress Head: Atraumatic, Normocephalic Neck: Normal Inspection, Supple, Non-Tender, Full Range of Motion Respiratory/Chest: No Respiratory Distress, No Accessory Muscle Use, Chest Non- Tender Cardiovascular: Normal Peripheral Pulses, Regular Rate, Rhythm, No Edema Extremities: Normal Range of Motion, Non-Tender, No Pedal Edema, Normal Capillary Refill, Other (right hand- pinky linear laceration a proximal phalange region . bleeding minimal- controlled with manual pressure. wound clean- CMS, ROM intact. ) ED TRAUMA EXTREMITY PROCEDURES - Laceration/Wound Repair Right Digit - 5th (Baby) Lac/Wound Length In cm: 0.5 Appearance: Subcutaneous, Linear Distal NVT: Neuro & Vascular Intact, No Tendon Injury Anesthetic Type: Local Local Anesthesia - Lidocaine (Xylocaine): 1% Plain Local Anesthetic Volume: 4cc Skin Prep: Chlorhexidine (Hibiciens) Exploration/Debridement/Repair: Wound Explored Closed With: Sutures Suture Size: 4-0 # of Sutures: 2 Suture Type: Simple Sterile Dressing Applied: Nurse Tetanus Status Addressed: Yes Complications: No Course - Orders/Labs/Meds Meds: Medications Discontinued Medications Generic Name Dose Route Start Last Admin Trade Name Mayitoq PRN Reason Stop Dose Admin Lidocaine HCl 5 ml 09/10/19 15:33 Xylocaine-Mpf 1% INJECT 09/10/19 15:34 ONETIME ONE Departure - Departure Time of Disposition: 15:50 Disposition: Home, Self-Care 01 Condition: Good Clinical Impression: Laceration - Discharge Information *PRESCRIPTION DRUG MONITORING PROGRAM REVIEWED*: Not Applicable *COPY OF PRESCRIPTION DRUG MONITORING REPORT IN PATIENT SHAHEEN: Not Applicable Instructions: Laceration Care, Adult, Lard-ms-Ogys, Sutures, [place], or Adhesive Wound Closure, [id number] Forms: ED Department Discharge Additional Instructions: 1. Rest 2. Keep the area clean and dry 3. Can use tylenol and ibuprofen as needed for pain and discomfort 4. Diet as tolerated 5. Activity as tolerated 6. Elevated the injured area above the level of the heart to decrease swelling and discomfort if applicable 7. Can use ice 3-4 times a day at 20-minute intervals to help with any swelling and discomfort 8. Follow-up with your primary care provider symptoms continue or to progress 9. Discharge information has been provided regarding your injury and wound care has been provided 10. Avoid an public pools or hot tubes until wound is healed. 11. Follow up in the Clinic in 10 days for removal of sutures - Assessment/Plan Assessment:: 1. laceration Plan: 1. Wound cleansing completed 2. Laceration repair completed 3. Tdap vaccine history completed 4. Education regarding wound care, dressing changes, OTC medications, activity, diet, follow up care and when to seek care if warrented provided 5. Patient is to return to the clinic in 10 days to have sutures site evaluated and removed 6. Patient was encouraged to call or return if any questions or concerns arise.
== END 2019-09-10 15:59 | disposition home or self-care (01) ==
LOC: VM.ED 14:38
DX: S61.216A Laceration without foreign body of right little finger without damage to nail, initial encounter (principal); I10 Essential (primary) hypertension; Z86.73 Personal history of transient ischemic attack (TIA), and cerebral infarction without residual deficits; Z79.82 Long term (current) use of aspirin; Z79.01 Long term (current) use of anticoagulants; Z79.899 Other long term (current) drug therapy; W26.8XXA Contact with other sharp object(s), not elsewhere classified, initial encounter; Y99.0 Civilian activity done for income or pay
CPT/HCPCS: 12001; 99282; J2001

== ENCOUNTER 2020-05-12 07:23 | Emergency (ER) | payer OTHER ==
--- NOTE | 2020-05-12 08:00 | EDM.PDOC ---
ED HPI GENERAL MEDICAL PROBLEM - General Chief Complaint: Cardiovascular Problem Stated Complaint: CHEST FEELS WEIRD Time Seen by Provider: 05/12/20 07:25 Source of Information: Reports: Patient History Limitations: Reports: No Limitations - History of Present Illness INITIAL COMMENTS - FREE TEXT/NARRATIVE: Patient comes emergency department today with complaints of racing heart sensation. Over the past 3 to 4 months he has had about 4 episodes that last anywhere from 20 to 30 minutes where it feels like his heart is racing. He does not have any pain with this. He does feel somewhat lightheaded when this episode is happening. He has never passed out. He never has any shortness of breath chest pain weakness diaphoresis nausea or any other paresthesias during these episodes. He has never had a syncopal episode with the palpitations. They resolve on their own after about 20 to 30 minutes. He cannot associate these with any illness around the time or episodes. He drinks about 3-4 caffeine drinks a day. He does use chewing tobacco but he does not smoke. He denies any alcohol or recreational drug use. [place] any history of thyroid disorders. He has never been evaluated for these episodes of palpitations. He is not currently having any symptoms when he comes to the emergency department. He does have a history of anxiety and is quite anxious. At the time of evaluation he is asymptomatic other than complaining of some anxiety. NO COVID symptoms No COVID exposure. He does have a history of Aortic valve replacement mechanical. HTN CHF. - Related Data Allergies Allergy/AdvReac Type Severity Reaction Status Date / Time No Known Allergies Allergy Verified 05/12/20 07:46 Home Meds: Home Meds Warfarin [Coumadin] 7.5 mg PO DAILY 11/06/17 [History] Acetaminophen [Tylenol] 650 mg PO Q4H PRN 12/02/18 [History] Aspirin [Halfprin] 81 mg PO DAILY 12/02/18 [History] lisinopriL [Lisinopril] 20 mg PO DAILY 12/02/18 [History] carvediloL [Coreg] 25 mg PO BID 05/12/20 [History] hydroCHLOROthiazide [Hydrochlorothiazide] 25 mg PO DAILY 05/12/20 [History] Past Medical History - Past Health History Medical/Surgical History: Denies Medical/Surgical History Cardiovascular History: Reports: CAD, Hypertension Gastrointestinal History: Reports: Cholelithiasis Neurological History: Reports: TIA - Past Surgical History Cardiovascular Surgical History: Reports: Valve Replacement GI Surgical History: Reports: Cholecystectomy Social & Family History - Family History Family Medical History: No Pertinent Family History ED ROS GENERAL - Review of Systems Review Of Systems: Comprehensive ROS is negative, except as noted in HPI. ED EXAM, GENERAL - Physical Exam Exam: See Below Exam Limited By: No Limitations General Appearance: Alert, WD/WN, No Apparent Distress, Anxious Eye Exam: Bilateral Eye: EOMI, PERRL Ears: Normal External Exam, Normal TMs Nose: Normal Inspection Throat/Mouth: Normal Inspection Head: Atraumatic, Normocephalic Neck: Normal Inspection, Supple, Non-Tender, Full Range of Motion Respiratory/Chest: No Respiratory Distress, Lungs Clear, Normal Breath Sounds, No Accessory Muscle Use, Chest Non-Tender Cardiovascular: Normal Peripheral Pulses, Regular Rate, Rhythm GI/Abdominal: Normal Bowel Sounds, Soft, Non-Tender (Male) Exam: Deferred Rectal (Males) Exam: Deferred Back Exam: Normal Inspection, Full Range of Motion Extremities: Normal Inspection, Normal Range of Motion, No Pedal Edema, Normal Capillary Refill Neurological: Alert, Oriented, CN II-XII Intact, Normal Cognition, No Motor/Sensory Deficits Psychiatric: Normal Affect, Normal Mood Skin Exam: Warm, Dry, Intact, Normal Color, No Rash Lymphatic: No Adenopathy #1 Interpretation EKG Date: 05/12/20 Time: 07:26 Rhythm: NSR Rate (Beats/Min): 103 [place]: Normal P-Wave: Present QRS: Normal ST-T: Normal QT: Normal Comparison: Change From Previous EKG (From Previous EKG 11/2018 T wave inversion has developed in the lateral leads.) Course - Vital Signs Last Recorded V/S: Last Vital Signs Temp 98.1 F 05/12/20 07:25 Pulse 97 05/12/20 08:53 Resp 14 05/12/20 08:53 BP 153/104 H 05/12/20 08:53 Pulse Ox 97 05/12/20 08:53 - Orders/Labs/Meds Orders: Active Orders 24 hr Category Date Time Status EKG Documentation Completion [RC] STAT Care 05/12/20 07:53 Active CORONAVIRUS COVID-19 CINDY [MOLEC] Stat Lab 05/12/20 09:40 Received Lactated Ringers [Ringers, Lactated] 1,000 ml Med 05/12/20 09:57 Active IV ONETIME Sodium Chloride 0.9% [Saline Flush] Med 05/12/20 09:09 Active 10 ml FLUSH ASDIRECTED PRN Peripheral IV Insertion Adult [OM.PC] Stat Oth 05/12/20 09:09 Ordered Medication Orders Lactated Ringer's (Ringers, Lactated) 1,000 mls @ 999 mls/hr IV ONETIME ONE Stop: 05/12/20 10:57 Last Admin: 05/12/20 10:01 Dose: 999 mls/hr Documented by: SHE Sodium Chloride (Saline Flush) 10 ml FLUSH ASDIRECTED PRN PRN Reason: Keep Vein Open Labs: Laboratory Tests 05/12/20 05/12/20 05/12/20 Range/Units 07:55 07:55 08:13 WBC 6.5 (4.0-10.0) x10^3/uL RBC 5.42 (4.5-6.0) x10^6/uL Hgb 15.3 (14.0-18.0) g/dL Hct 46.4 (40.0-52.0) % MCV 85.6 (78.0-93.0) fL MCH 28.2 (26.0-32.0) pg MCHC 33.0 (32.0-36.0) g/dL RDW Coeff of Adina 13.8 (10.0-15.0) % Plt Count 264 (130-400) x10^3/uL Add Manual Diff Yes Neutrophils % (Manual) 61 (50-80) % Lymphocytes % (Manual) 28 (25-50) % Monocytes % (Manual) 9 (2-11) % Eosinophils % (Manual) 2 (0-4) % Platelet Estimate Adequate PT (9.9-12.5) SEC INR (2.0-3.5) APTT (25.6-32.8) SEC D-Dimer, Quantitative (<=0.58) mg/LFEU Sodium (136-145) mmol/L Potassium (3.5-5.1) mmol/L Chloride (98-107) mmol/L Carbon Dioxide (21-32) mmol/L Anion Gap (5-15) mmol/L BUN (7-18) mg/dL Creatinine (0.70-1.30) mg/dL Est Cr Clr Drug Dosing Estimated GFR (MDRD) Glucose (74-106) mg/dL Calcium (8.5-10.1) mg/dL Corrected Calcium (8.5-10.1) mg/dL Magnesium (1.8-2.4) mg/dL Total Bilirubin (0.2-1.0) mg/dL AST (15-37) U/L ALT (16-63) U/L Alkaline Phosphatase (46-116) U/L Troponin I (<=0.056) ng/mL NT-Pro-B Natriuret Pep (<=125) pg/mL Total Protein (6.4-8.2) g/dL Albumin (3.4-5.0) g/dL Globulin Albumin/Globulin Ratio TSH, Ultra Sensitive (0.358-3.74) uIU/mL Urine Color Yellow (YELLOW) Urine Appearance Clear (CLEAR) Urine pH 7.0 (5.0-8.0) Ur Specific [place] 1.015 Urine Protein Negative (NEGATIVE) mg/dL Urine Glucose (UA) Negative (NEGATIVE) mg/dL Urine Ketones Negative (NEGATIVE) mg/dL Urine Occult Blood Negative (NEGATIVE) Urine Nitrite Negative (NEGATIVE) Urine Bilirubin Negative (NEGATIVE) Urine Urobilinogen 0.2 (0.2) EU/dL Ur Leukocyte Esterase Negative (NEGATIVE) Urine Opiates Screen Negative (NEAGTIVE) Ur Buprenorphine Scrn Negative (NEGATIVE) Ur Oxycodone Screen Negative (NEGATIVE) Ur EDDP (Meth Metab) Negative (NEGATIVE) Urine Methadone Screen Negative (NEGATIVE) Ur Barbiturates Screen Negative (NEGATIVE) Ur Tricyclics Screen Negative (NEGATIVE) Ur Phencyclidine Scrn Negative (NEGATIVE) Ur Amphetamine Screen Negative (NEGATIVE) U Methamphetamines Scrn Negative (NEGATIVE) Urine MDMA Screen Negative (NEGATIVE) U Benzodiazepines Scrn Negative (NEGATIVE) U Cocaine Metab Screen Negative (NEGATIVE) U Marijuana (THC) Screen Negative (NEGATIVE) Ethyl Alcohol (0-3) mg/dL 05/12/20 05/12/20 05/12/20 Range/Units 08:13 08:13 08:13 WBC (4.0-10.0) x10^3/uL RBC (4.5-6.0) x10^6/uL Hgb (14.0-18.0) g/dL Hct (40.0-52.0) % MCV (78.0-93.0) fL MCH (26.0-32.0) pg MCHC (32.0-36.0) g/dL RDW Coeff of Adina (10.0-15.0) % Plt Count (130-400) x10^3/uL Add Manual Diff Neutrophils % (Manual) (50-80) % Lymphocytes % (Manual) (25-50) % Monocytes % (Manual) (2-11) % Eosinophils % (Manual) (0-4) % Platelet Estimate PT 10.8 (9.9-12.5) SEC INR 1.0 L (2.0-3.5) APTT 25.6 (25.6-32.8) SEC D-Dimer, Quantitative 0.44 (<=0.58) mg/LFEU Sodium 139 (136-145) mmol/L Potassium 3.9 (3.5-5.1) mmol/L Chloride 102 (98-107) mmol/L Carbon Dioxide 29 (21-32) mmol/L Anion Gap 11.9 (5-15) mmol/L BUN 16 (7-18) mg/dL Creatinine 1.0 (0.70-1.30) mg/dL Est Cr Clr Drug Dosing TNP Estimated GFR (MDRD) > 60 Glucose 104 (74-106) mg/dL Calcium 8.9 (8.5-10.1) mg/dL Corrected Calcium 9.06 (8.5-10.1) mg/dL Magnesium 2.0 (1.8-2.4) mg/dL Total Bilirubin 0.8 (0.2-1.0) mg/dL AST 29 (15-37) U/L ALT 42 (16-63) U/L Alkaline Phosphatase 86 (46-116) U/L Troponin I 0.277 H* (<=0.056) ng/mL NT-Pro-B Natriuret Pep (<=125) pg/mL Total Protein 8.3 H (6.4-8.2) g/dL Albumin 3.8 (3.4-5.0) g/dL Globulin 4.5 Albumin/Globulin Ratio 0.84 TSH, Ultra Sensitive 1.247 (0.358-3.74) uIU/mL Urine Color (YELLOW) Urine Appearance (CLEAR) Urine pH (5.0-8.0) Ur Specific [place] Urine Protein (NEGATIVE) mg/dL Urine Glucose (UA) (NEGATIVE) mg/dL Urine Ketones (NEGATIVE) mg/dL Urine Occult Blood (NEGATIVE) Urine Nitrite (NEGATIVE) Urine Bilirubin (NEGATIVE) Urine Urobilinogen (0.2) EU/dL Ur Leukocyte Esterase (NEGATIVE) Urine Opiates Screen (NEAGTIVE) Ur Buprenorphine Scrn (NEGATIVE) Ur Oxycodone Screen (NEGATIVE) Ur EDDP (Meth Metab) (NEGATIVE) Urine Methadone Screen (NEGATIVE) Ur Barbiturates Screen (NEGATIVE) Ur Tricyclics Screen (NEGATIVE) Ur Phencyclidine Scrn (NEGATIVE) Ur Amphetamine Screen (NEGATIVE) U Methamphetamines Scrn (NEGATIVE) Urine MDMA Screen (NEGATIVE) U Benzodiazepines Scrn (NEGATIVE) U Cocaine Metab Screen (NEGATIVE) U Marijuana (THC) Screen (NEGATIVE) Ethyl Alcohol < 3 (0-3) mg/dL 05/12/20 Range/Units 08:13 WBC (4.0-10.0) x10^3/uL RBC (4.5-6.0) x10^6/uL Hgb (14.0-18.0) g/dL Hct (40.0-52.0) % MCV (78.0-93.0) fL MCH (26.0-32.0) pg MCHC (32.0-36.0) g/dL RDW Coeff of Adina (10.0-15.0) % Plt Count (130-400) x10^3/uL Add Manual Diff Neutrophils % (Manual) (50-80) % Lymphocytes % (Manual) (25-50) % Monocytes % (Manual) (2-11) % Eosinophils % (Manual) (0-4) % Platelet Estimate PT (9.9-12.5) SEC INR (2.0-3.5) APTT (25.6-32.8) SEC D-Dimer, Quantitative (<=0.58) mg/LFEU Sodium (136-145) mmol/L Potassium (3.5-5.1) mmol/L Chloride (98-107) mmol/L Carbon Dioxide (21-32) mmol/L Anion Gap (5-15) mmol/L BUN (7-18) mg/dL Creatinine (0.70-1.30) mg/dL Est Cr Clr Drug Dosing Estimated GFR (MDRD) Glucose (74-106) mg/dL Calcium (8.5-10.1) mg/dL Corrected Calcium (8.5-10.1) mg/dL Magnesium (1.8-2.4) mg/dL Total Bilirubin (0.2-1.0) mg/dL AST (15-37) U/L ALT (16-63) U/L Alkaline Phosphatase (46-116) U/L Troponin I (<=0.056) ng/mL NT-Pro-B Natriuret Pep 398 H (<=125) pg/mL Total Protein (6.4-8.2) g/dL Albumin (3.4-5.0) g/dL Globulin Albumin/Globulin Ratio TSH, Ultra Sensitive (0.358-3.74) uIU/mL Urine Color (YELLOW) Urine Appearance (CLEAR) Urine pH (5.0-8.0) Ur Specific [place] Urine Protein (NEGATIVE) mg/dL Urine Glucose (UA) (NEGATIVE) mg/dL Urine Ketones (NEGATIVE) mg/dL Urine Occult Blood (NEGATIVE) Urine Nitrite (NEGATIVE) Urine Bilirubin (NEGATIVE) Urine Urobilinogen (0.2) EU/dL Ur Leukocyte Esterase (NEGATIVE) Urine Opiates Screen (NEAGTIVE) Ur Buprenorphine Scrn (NEGATIVE) Ur Oxycodone Screen (NEGATIVE) Ur EDDP (Meth Metab) (NEGATIVE) Urine Methadone Screen (NEGATIVE) Ur Barbiturates Screen (NEGATIVE) Ur Tricyclics Screen (NEGATIVE) Ur Phencyclidine Scrn (NEGATIVE) Ur Amphetamine Screen (NEGATIVE) U Methamphetamines Scrn (NEGATIVE) Urine MDMA Screen (NEGATIVE) U Benzodiazepines Scrn (NEGATIVE) U Cocaine Metab Screen (NEGATIVE) U Marijuana (THC) Screen (NEGATIVE) Ethyl Alcohol (0-3) mg/dL Meds: Medications Generic Name Dose Route Start Last Admin Trade Name Freq PRN Reason Stop Dose Admin Lactated Ringer's 1,000 mls @ 999 mls/hr 05/12/20 09:57 05/12/20 10:01 Ringers, Lactated IV 05/12/20 10:57 999 mls/hr ONETIME ONE Administration Sodium Chloride 10 ml 05/12/20 09:09 Saline Flush FLUSH ASDIRECTED PRN Keep Vein Open Discontinued Medications Generic Name Dose Route Start Last Admin Trade Name Mahnaz PRN Reason Stop Dose Admin Aspirin 324 mg 05/12/20 08:59 05/12/20 09:07 Aspirin PO 05/12/20 09:00 324 mg ONETIME ONE Administration Iopamidol 100 ml 05/12/20 09:44 05/12/20 09:44 Isovue-300 (61%) IVPUSH 05/12/20 09:45 100 ml ONETIME ONE Administration - Radiology Interpretation Free Text/Narrative:: Chest x-ray per radiology shows no acute process. PA of the chest is a limited study due to the timing concerns. No obvious large central emboli are seen. Consider repeat study. There is no pulmonary parenchymal infiltrate or lung mass. - Re-Assessments/Exams Free Text/Narrative Re-Assessment/Exam: 05/12/20 09:19 EKG initially shows a normal sinus tachycardia in the rate of about 105. Without any ST elevation or depression when reviewed extemporaneously by myself. There is some subtle T wave inversion changes in the lateral leads when compared to an EKG of 2019. Chest x-ray is unremarkable. Labs drawn. 05/12/20 09:21 CBC is absolutely normal. His INR is subtherapeutic at 1.0. He noted a couple of days ago that he was supratherapeutic and held his Coumadin he has not taken it for 2 days. He has not taken his medications that he is to take today as of yet either. Comprehensive metabolic panel is normal. Troponin is elevated 0.277. He still continues to deny any chest pain. 324 of aspirin given orally. I called and spoke with Dr. Brito at [facility] in [place]. HPI ER COURSE findings and concerns were relayed to him and the patients current asymptomatic complaints. He requested a COVID test as well as a CTA chest. I reviewed the results and the plan with the patient. His questions were answered and he was comfortable with this plan. 05/12/20 10:19 His D-dimer is negative at 0.44. proBNP mildly elevated at just under 400. 05/12/20 10:43 Patient continues to be somewhat hypertensive. He was given a 500 mill bolus of LR and then 125 an hour for hydration following IV contrast. He was given lisinopril as well as carvedilol as he has missed his daily dosing which I think he does on a daily basis. We will also give him some Lovenox as he is subtherapeutic on his INR. Wojciech spoke with the hospitalist again at [facility] in [place]. Relayed the new findings to them of the CT scan as well as the Covid test he accepted this patient in transfer at this time Departure - Departure Time of Disposition: 10:30 Disposition: DC/Tfer to [facility] Reason for Transfer *Q: Other Clinical Impression: Subtherapeutic anticoagulation, Palpitations, NSTEMI (non-ST elevated myocardial infarction) Forms: ED Department Discharge, Interfacility Transfer [facility] Sepsis Event Note (ED) - Evaluation Sepsis Screening Result: No Definite Risk - Focused Exam Vital Signs: Vital Signs Temp Pulse Resp BP Pulse Ox 05/12/20 08:53 97 14 153/104 H 97 05/12/20 08:18 96 18 150/105 H 98 05/12/20 07:25 98.1 F 98 14 165/116 H 98 - My Orders Last 24 Hours: My Active Orders 05/12/20 07:53 EKG Documentation Completion [RC] STAT 05/12/20 09:09 Sodium Chloride 0.9% [Saline Flush] 10 ml FLUSH ASDIRECTED PRN Peripheral IV Insertion Adult [OM.PC] Stat 05/12/20 09:40 CORONAVIRUS COVID-19 CINDY [MOLEC] Stat 05/12/20 09:57 Lactated Ringers [Ringers, Lactated] 1,000 ml IV ONETIME - Assessment/Plan Last 24 Hours: My Active Orders 05/12/20 07:53 EKG Documentation Completion [RC] STAT 05/12/20 09:09 Sodium Chloride 0.9% [Saline Flush] 10 ml FLUSH ASDIRECTED PRN Peripheral IV Insertion Adult [OM.PC] Stat 05/12/20 09:40 CORONAVIRUS COVID-19 CINDY [MOLEC] Stat 05/12/20 09:57 Lactated Ringers [Ringers, Lactated] 1,000 ml IV ONETIME
[2020-05-12 08:02] LABS: BARBITURATE SCREEN,URINE NEGATIVE (NEGATIVE); BENZODIAZEPINES SCREEN,URINE NEGATIVE (NEGATIVE); EDDP,URINE SCREEN NEGATIVE (NEGATIVE); METHAMPHETAMINE SCREEN, URINE NEGATIVE (NEGATIVE); TCA SCREEN,URINE NEGATIVE (NEGATIVE); THC SCREEN,URINE 50 NG/ML NEGATIVE (NEGATIVE)
[2020-05-12 08:40] LABS: PTT,PARTIAL THROMBOPLSTIN TIME 25.6 SEC (25.6-32.8)
--- NOTE | 2020-05-12 08:46 | CR ---
[id number] RAD/RAD Chest PA And Lateral EXAM: RAD Chest PA And Lateral CLINICAL DATA: CHEST PAIN SHORTNESS OF BREATH COMPARISON: CORRELATION IS MADE WITH THE CAT SCAN OF 2018 FINDINGS: The lungs are clear The cardiac silhouette is stable Cardiac surgical changes are identified IMPRESSION: NO ACUTE PROCESS. Rolando Damon MD 05/12/20 0845 Thank you for allowing us to participate in the care of your patient.
[2020-05-12 08:56] LABS: CHLORIDE,CL 102 mmol/L (98-107); SODIUM,NA 139 mmol/L (136-145)
[2020-05-12 08:59] LABS: ANION GAP 11.9 mmol/L (5-15)
[2020-05-12] MEDS ORDERED: Aspirin 81 MG Tab.Chew PO ONE (08:59)
[2020-05-12] MEDS ORDERED: Sodium Chloride 0.9% 10 ML Syringe FLUSH PRN (09:09)
[2020-05-12] MEDS ORDERED: Iopamidol 612 MG/ML 100 ML Bottle IVPUSH ONE (09:44)
[2020-05-12] MEDS ORDERED: Lactated Ringers 1,000 ML IV ONE (09:57)
--- NOTE | 2020-05-12 10:10 | CT ---
[id number] CT/CTA Chest Exam: CTA Chest Clinical Data: ELEVATED TROPONIN COMPARISON: CORRELATION IS MADE WITH 2018 FINDINGS: No obvious large central emboli are seen Consider a repeat study The timing is such that the pulmonary venous opacification is favored and not the pulmonary arterial opacification There is no pulmonary parenchymal infiltrate or lung mass There is no pleural effusion There is no mediastinal mass or adenopathy There is a calcified granuloma at the left lung base and there is no adrenal mass IMPRESSION: LIMITED STUDY CONSIDER A REPEAT EXAM Rolando Damon MD 05/12/20 [id number] Thank you for allowing us to participate in the care of your patient.
[2020-05-12] MEDS ORDERED: Lisinopril 20 MG Tab PO STA (10:20)
[2020-05-12 10:26] VITALS: BP 157/102
[2020-05-12] MEDS ORDERED: Carvedilol 25 MG Tab PO ONE (10:38)
[2020-05-12] MEDS ORDERED: Enoxaparin 120 MG/0.8 ML Syringe SUBCUT ONE (10:42)
[2020-05-12 10:45] VITALS: PULSE 98
== END 2020-05-12 11:35 | disposition short-term general hospital (02) ==
LOC: VM.ED 07:23
DX: I21.4 Non-ST elevation (NSTEMI) myocardial infarction (principal); R00.2 Palpitations; I25.10 Atherosclerotic heart disease of native coronary artery without angina pectoris; I10 Essential (primary) hypertension; Z79.1 Long term (current) use of non-steroidal anti-inflammatories (NSAID); Z79.82 Long term (current) use of aspirin; Z79.899 Other long term (current) drug therapy; Z86.73 Personal history of transient ischemic attack (TIA), and cerebral infarction without residual deficits; Z20.822 Contact with and (suspected) exposure to COVID-19
CPT/HCPCS: 36415; 71046; 71275; 80053; 80305-QW; 80307; 81003; 83735; 83880; 84443; 84484; 85025; 85379; 85610; 85730; 93005; 93010; 96372; 99284; 99285-25; A9270-GY; J1650; J7120; Q9967; U0002

== ENCOUNTER 2022-01-11 14:36 | Emergency (ER) | payer BC ==
[2022-01-11] MEDS ORDERED: Sodium Chloride 0.9% 10 ML Syringe FLUSH PRN (14:46)
[2022-01-11 15:22] LABS: PTT,PARTIAL THROMBOPLSTIN TIME 25.4 SEC (20.5-30.9)
[2022-01-11 15:23] LABS: CHLORIDE,CL 104 mmol/L (98-107); SODIUM,NA 140 mmol/L (136-145)
[2022-01-11 15:28] LABS: ANION GAP 11.4 mmol/L (5-15); ESTIMATED GFR 86 mL/min (>=60)
[2022-01-11] MEDS: Sodium Chloride 0.9% 1,000 ML IV SCH (16:08)
[2022-01-11] MEDS: Aspirin 81 MG Tab.Chew PO ONE (16:32)
[2022-01-11] MEDS: Heparin Sodium/0.45% NaCl 25,000 UNITS/500 ML BAG IV STA (16:37)
[2022-01-11] MEDS: Iopamidol 755 Mg/ML 100 ML Bottle IVPUSH ONE ×2 (18:15)
== END 2022-01-11 17:40 | disposition short-term general hospital (02) ==
LOC: VM.ED 14:36
DX: G45.9 Transient cerebral ischemic attack, unspecified (principal); I21.4 Non-ST elevation (NSTEMI) myocardial infarction; I10 Essential (primary) hypertension; Z79.899 Other long term (current) drug therapy
CPT/HCPCS: 80053; 80307; 83735; 83880; 84484; 85025; 85610; 85730; 86140; 93005; 96361; 96374; 99285; A9270; J1644; J7030; Q9967; 93010; 99284

== ENCOUNTER 2022-09-06 13:57 | Emergency (ER) | payer BC ==
[2022-09-06] MEDS ORDERED: Sodium Chloride 0.9% 10 ML Syringe FLUSH PRN (14:23)
[2022-09-06] MEDS: Sodium Chloride 0.9% 1,000 ML IV SCH (14:28)
[2022-09-06] MEDS: Ketorolac 15 MG/ML SDV IVPUSH ONE (14:29)
[2022-09-06] MEDS: Ondansetron 4 MG/2 ML SDV IVPUSH ONE (14:29)
[2022-09-06 14:31] LABS: BASOPHILS ABSOLUTE AUTO 0.1 x10^3/uL (0.0-0.2); BASOPHILS PERCENT AUTO 0.9 % (0.2-1.2); EOSINOPHILS ABSOLUTE AUTO 0.2 x10^3/uL (0.0-0.5); EOSINOPHILS PERCENT AUTO 1.9 % (0.0-4.0); HEMOGLOBIN 15.8 g/dL (14.0-18.0); IMMATURE GRAN ABSOLUTE AUTO 0.03 x10^3/uL (0.00-0.07); LYMPHOCYTES ABSOLUTE AUTO 2.6 x10^3/uL (1.0-4.8); LYMPHOCYTES PERCENT AUTO 27.6 % (25.0-50.0); MEAN CORPUSCULAR HGB CONC 34.3 g/dL (32.0-36.0); MEAN CORPUSCULAR VOLUME 84.4 fL (78.0-93.0); MONOCYTES ABSOLUTE AUTO 0.7 x10^3/uL (0.0-0.8); MONOCYTES PERCENT AUTO 7.5 % (2.0-11.0); NEUTROPHILS ABSOLUTE AUTO 5.8 x10^3/uL (1.8-7.7); NEUTROPHILS PERCENT AUTO 61.8 % (50.0-80.0); PLATELET COUNT,PLT 268 x10^3/uL (130-400); RED BLOOD CELL COUNT 5.45 x10^6/uL (4.5-6.0); WHITE BLOOD CELL COUNT,WBC 9.4 x10^3/uL (4.0-10.0)
[2022-09-06] MEDS: HYDROmorphone 0.5 MG/0.5 ML Syringe IVPUSH ONE ×2 (14:31→16:26)
[2022-09-06 14:49] LABS: A/G RATIO 0.89; BILIRUBIN TOTAL 0.6 mg/dL (0.2-1.0); CREATININE 1.1 mg/dL (0.70-1.30); EST CRCL DRUG DOSING (CG) 106.31 mL/min; POTASSIUM,K 3.6 mmol/L (3.5-5.1); PROTEIN TOTAL,TP 8.5 g/dL (6.4-8.2)
[2022-09-06 14:51] LABS: ANION GAP 15.6 mmol/L (5-15)
[2022-09-06 15:03] LABS: BILIRUBIN,URINE SMALL (NEGATIVE); COLOR,URINE YELLOW (YELLOW); GLUCOSE,URINE NEGATIVE (NEGATIVE); KETONES,URINE NEGATIVE (NEGATIVE); LEUKOCYTE ESTERASE,URINE NEGATIVE (NEGATIVE); NITRITE,URINE NEGATIVE (NEGATIVE); OCCULT BLOOD,URINE NEGATIVE (NEGATIVE); PH,URINE 5.5 (5.0-8.0); PROTEIN,URINE 30 mg/dL (NEGATIVE); UROBILINOGEN,URINE 0.2 EU/dL (0.2)
[2022-09-06 15:05] LABS: APPEARANCE,URINE SLIGHTLY CLOUDY (CLEAR)
[2022-09-06 15:10] LABS: RBC,URINE 0-5 /HPF (NOT SEEN); SQUAMOUS EPITHELIAL CELLS,UR RARE /HPF (NOT SEEN); WBC,URINE 0-5 /HPF (NOT SEEN)
[2022-09-06 15:11] LABS: BACTERIA,URINE RARE /HPF (NOT SEEN); GRANULAR CASTS,URINE FEW; HYALINE CASTS,URINE FEW; MUCUS,URINE FEW /LPF (NOT SEEN)
[2022-09-06] MEDS: Iopamidol 612 MG/ML 100 ML Bottle IVPUSH ONE (15:42)
[2022-09-06] MEDS: cefTRIAXone 1 GM Vial IVPUSH ONE (16:23)
[2022-09-06 16:38] VITALS: BP 162/97; PULSE 102
== END 2022-09-06 16:45 | disposition home or self-care (01) ==
LOC: VM.ED 13:57
DX: N12 Tubulo-interstitial nephritis, not specified as acute or chronic (principal); I25.10 Atherosclerotic heart disease of native coronary artery without angina pectoris; I10 Essential (primary) hypertension; Z86.73 Personal history of transient ischemic attack (TIA), and cerebral infarction without residual deficits; Z79.01 Long term (current) use of anticoagulants; Z72.0 Tobacco use; Z79.82 Long term (current) use of aspirin
CPT/HCPCS: 36415; 74177; 80053; 81001; 85025; 87040; 96361; 96374; 96375; 96376; 99284; 99284-25; J0696; J1170; J1885; J2405; J7030; Q9967

== ENCOUNTER 2022-09-28 00:26 | Emergency (ER) | payer BC ==
[2022-09-28 00:57] VITALS: PULSE 101
[2022-09-28 01:03] LABS: BASOPHILS ABSOLUTE AUTO 0.1 x10^3/uL (0.0-0.2); BASOPHILS PERCENT AUTO 0.9 % (0.2-1.2); EOSINOPHILS ABSOLUTE AUTO 0.2 x10^3/uL (0.0-0.5); EOSINOPHILS PERCENT AUTO 2.1 % (0.0-4.0); HEMATOCRIT 43.1 % (40.0-52.0); HEMOGLOBIN 14.4 g/dL (14.0-18.0); IMMATURE GRAN ABSOLUTE AUTO 0.01 x10^3/uL (0.00-0.07); LYMPHOCYTES ABSOLUTE AUTO 1.8 x10^3/uL (1.0-4.8); LYMPHOCYTES PERCENT AUTO 24.7 % (25.0-50.0); MEAN CORPUSCULAR HEMOGLOBIN 28.7 pg (26.0-32.0); MEAN CORPUSCULAR HGB CONC 33.4 g/dL (32.0-36.0); MONOCYTES ABSOLUTE AUTO 0.4 x10^3/uL (0.0-0.8); MONOCYTES PERCENT AUTO 5.6 % (2.0-11.0); NEUTROPHILS PERCENT AUTO 66.6 % (50.0-80.0); PLATELET COUNT,PLT 255 x10^3/uL (130-400); RED BLOOD CELL COUNT 5.01 x10^6/uL (4.5-6.0); WHITE BLOOD CELL COUNT,WBC 7.5 x10^3/uL (4.0-10.0)
[2022-09-28 01:26] LABS: A/G RATIO 0.83; ALBUMIN 3.5 g/dL (3.4-5.0); ANION GAP 13.8 mmol/L (5-15); BILIRUBIN TOTAL 0.5 mg/dL (0.2-1.0); C-REACTIVE PROTEIN 0.45 mg/dL (<=0.30); CALCIUM 8.5 mg/dL (8.5-10.1); CREATININE 1.1 mg/dL (0.70-1.30); D-DIMER QUANTITATIVE 0.66 mg/LFEU (<=0.58); EST CRCL DRUG DOSING (CG) 106.31 mL/min; POTASSIUM,K 3.8 mmol/L (3.5-5.1); PROTEIN TOTAL,TP 7.7 g/dL (6.4-8.2); PROTHROMBIN TIME 11.1 SEC (9.5-12.2)
[2022-09-28] MEDS ORDERED: Aspirin 81 MG Tab.Chew PO ONE (02:07)
[2022-09-28] MEDS ORDERED: Heparin Sodium 5,000 Units/ML Vial IVPUSH ONE (02:22)
[2022-09-28] MEDS ORDERED: Heparin Sodium/0.45% NaCl 25,000 UNITS/500 ML BAG IV SCH (02:30)
[2022-09-28 02:47] LABS: APPEARANCE,URINE CLEAR (CLEAR); BILIRUBIN,URINE NEGATIVE (NEGATIVE); COLOR,URINE YELLOW (YELLOW); GLUCOSE,URINE NEGATIVE (NEGATIVE); KETONES,URINE NEGATIVE (NEGATIVE); LEUKOCYTE ESTERASE,URINE NEGATIVE (NEGATIVE); NITRITE,URINE NEGATIVE (NEGATIVE); OCCULT BLOOD,URINE NEGATIVE (NEGATIVE); PH,URINE 6.5 (5.0-8.0); PROTEIN,URINE 100 mg/dL (NEGATIVE); UROBILINOGEN,URINE 0.2 EU/dL (0.2)
[2022-09-28 03:20] VITALS: BP 152/104
== END 2022-09-28 03:32 | disposition short-term general hospital (02) ==
LOC: VM.ED 00:26
DX: I21.4 Non-ST elevation (NSTEMI) myocardial infarction (principal); I25.10 Atherosclerotic heart disease of native coronary artery without angina pectoris; I10 Essential (primary) hypertension; Z86.73 Personal history of transient ischemic attack (TIA), and cerebral infarction without residual deficits; Z79.899 Other long term (current) drug therapy; Z79.82 Long term (current) use of aspirin
CPT/HCPCS: 71046; 80053; 81003; 82550; 83615; 83880; 84484; 85025; 85379; 85610; 85730; 86140; 93005; 93010; 96365; 99284; 99285-25; A9270-GY; J1644

== ENCOUNTER 2022-12-09 09:13 | Emergency (ER) | payer BC ==
[2022-12-09] MEDS ORDERED: Sodium Chloride 0.9% 10 ML Syringe FLUSH PRN (09:53)
[2022-12-09 10:25] LABS: BASOPHILS PERCENT AUTO 0.3 % (0.2-1.2); EOSINOPHILS PERCENT AUTO 0.1 % (0.0-4.0); HEMATOCRIT 38.4 % (40.0-52.0); HEMOGLOBIN 13.6 g/dL (14.0-18.0); IMMATURE GRAN ABSOLUTE AUTO 0.07 x10^3/uL (0.00-0.07); LYMPHOCYTES ABSOLUTE AUTO 0.6 x10^3/uL (1.0-4.8); LYMPHOCYTES PERCENT AUTO 5.2 % (25.0-50.0); MEAN CORPUSCULAR HEMOGLOBIN 29.1 pg (26.0-32.0); MEAN CORPUSCULAR HGB CONC 35.4 g/dL (32.0-36.0); MEAN CORPUSCULAR VOLUME 82.2 fL (78.0-93.0); MONOCYTES ABSOLUTE AUTO 1.5 x10^3/uL (0.0-0.8); MONOCYTES PERCENT AUTO 13.6 % (2.0-11.0); NEUTROPHILS ABSOLUTE AUTO 8.8 x10^3/uL (1.8-7.7); NEUTROPHILS PERCENT AUTO 80.2 % (50.0-80.0); PLATELET COUNT,PLT 68 x10^3/uL (130-400); RED BLOOD CELL COUNT 4.67 x10^6/uL (4.5-6.0)
[2022-12-09 10:48] LABS: INR 1.2 (0.9-1.1); PROTHROMBIN TIME 12.6 SEC (9.5-12.2); PTT,PARTIAL THROMBOPLSTIN TIME 31.9 SEC (23.6-33.6)
[2022-12-09 10:51] LABS: A/G RATIO 0.59; ALANINE AMINOTRANSFERASE,ALT 62 U/L (16-63); ALBUMIN 2.6 g/dL (3.4-5.0); ALKALINE PHOSPHATASE 110 U/L (46-116); ANION GAP 13.8 mmol/L (5-15); ASPARTATE AMNIOTRANSFERASE,AST 133 U/L (15-37); BILIRUBIN TOTAL 1.3 mg/dL (0.2-1.0); C-REACTIVE PROTEIN 22.98 mg/dL (<=0.30); CALCIUM 7.9 mg/dL (8.5-10.1); CARBON DIOXIDE,CO2 25 mmol/L (21-32); CHLORIDE,CL 91 mmol/L (98-107); GLUCOSE RANDOM 118 mg/dL (70-99); MAGNESIUM 2.2 mg/dL (1.8-2.4); PHOSPHORUS 4.4 mg/dL (2.6-4.7); TSH ULTRASENSITIVE 0.367 uIU/mL (0.358-3.74)
[2022-12-09 10:52] LABS: ESTIMATED GFR 23 mL/min (>=60); ETHANOL BLOOD MEDICAL < 3 mg/dL (0-3)
[2022-12-09 10:53] LABS: SODIUM,NA 127 mmol/L (136-145)
[2022-12-09 10:54] LABS: BLOOD UREA NITROGEN,BUN 75 mg/dL (7-18); CREATININE 3.3 mg/dL (0.70-1.30); POTASSIUM,K 2.8 mmol/L (3.5-5.1)
[2022-12-09] MEDS ORDERED: Sodium Chloride 0.9% 1,000 ML IV SCH (11:00)
[2022-12-09] MEDS ORDERED: Aspirin 81 MG Tab.Chew PO ONE (11:43)
[2022-12-09] MEDS ORDERED: Potassium Chloride Riders 20 MEQ in Premix Bag 1 BAG IV ONE (11:47)
[2022-12-09 16:23] VITALS: BP 114/72; PULSE 101
== END 2022-12-09 12:45 | disposition short-term general hospital (02) ==
LOC: VM.ED 09:13
DX: H54.7 Unspecified visual loss (principal); N17.9 Acute kidney failure, unspecified; R79.1 Abnormal coagulation profile; I25.10 Atherosclerotic heart disease of native coronary artery without angina pectoris; I10 Essential (primary) hypertension; Z86.73 Personal history of transient ischemic attack (TIA), and cerebral infarction without residual deficits; Z79.01 Long term (current) use of anticoagulants; Z79.82 Long term (current) use of aspirin
CPT/HCPCS: 70450; 80053; 80307; 83735; 84100; 84443; 84484; 85025; 85610; 85652; 85730; 86140; 93005; 93010; 96361; 96365; 99284; 99285; A9270; J3480; J7030; J3490